=== PATIENT | female | born 1940 | race Caucasian/White ===

== ENCOUNTER 2017-08-19 19:20 | Emergency (ER) | payer BC, MEDICARE ==
[2017-08-19] MEDS ORDERED: Take Home: Sulfamethoxazole/Trimethoprim 800-160 MG Tab, 2 Tab Pack PO ONE (19:34)
--- NOTE | 2017-08-19 21:50 | EDM.PDOC ---
ED HPI GENERAL MEDICAL PROBLEM - General Chief Complaint: General Stated Complaint: redness, drainage, abdominal incision Time Seen by Provider: 08/19/17 19:24 Source of Information: Reports: Patient History Limitations: Reports: No Limitations - History of Present Illness INITIAL COMMENTS - FREE TEXT/NARRATIVE: PtTaty presents to ER with complaints of infected surgical incision. She states that she had a partial colon resection approx. 2 weeks ago, and the incision was closed with letty. She states that she developed redness and discharge from the incision. She denies any fever or chills. No weakness. She states that she has noticed some swelling to the area. Onset: Today Location: Reports: Abdomen - Related Data Allergies Allergy/AdvReac Type Severity Reaction Status Date / Time No Known Allergies Allergy Verified 08/19/17 19:25 Home Meds: Home Meds Metoprolol Tartrate 100 mg PO DAILY 08/19/17 [History] Simvastatin [Zocor] 40 mg PO DAILY 08/19/17 [History] metFORMIN HCl [Metformin HCl] 500 mg PO BID 08/19/17 [History] Past Medical History Cardiovascular History: Reports: High Cholesterol, Hypertension Endocrine/Metabolic History: Reports: Other (See Below) Other Endocrine/Metabolic History: boderline diabetic - Past Surgical History GI Surgical History: Reports: Colon ED ROS GENERAL - Review of Systems Review Of Systems: See Below Constitutional: Reports: No Symptoms HEENT: Reports: No Symptoms Respiratory: Reports: No Symptoms Cardiovascular: Reports: No Symptoms Endocrine: Reports: No Symptoms GI/Abdominal: Reports: Abdominal Pain, Other (swelling and erythema to surgical incision) : Reports: No Symptoms Musculoskeletal: Reports: No Symptoms Skin: Reports: Erythema Neurological: Reports: No Symptoms Psychiatric: Reports: No Symptoms Hematologic/Lymphatic: Reports: No Symptoms Immunologic: Reports: No Symptoms ED EXAM, GENERAL - Physical Exam Exam: See Below Exam Limited By: No Limitations General Appearance: Alert, WD/WN, No Apparent Distress Respiratory/Chest: No Respiratory Distress, Lungs Clear, Normal Breath Sounds, No Accessory Muscle Use, Chest Non-Tender Cardiovascular: Normal Peripheral Pulses, Regular Rate, Rhythm, No Edema, No Gallop, No JVD, No Murmur, No Rub Peripheral Pulses: 4+: Radial (L), Radial (R) GI/Abdominal: Normal Bowel Sounds, Soft, Tender, Other (erythema and discharge to the anterior stomach wall. Incision closed with skin letty.) Course - Vital Signs Last Recorded V/S: Last Vital Signs Temp 36.9 C 08/19/17 19:25 Pulse 74 08/19/17 19:25 Resp 16 08/19/17 19:25 BP 169/87 H 08/19/17 19:25 Pulse Ox 98 08/19/17 19:25 - Orders/Labs/Meds Orders: Active Orders 24 hr Category Date Time Status CULTURE WOUND + SMEAR [RM] Stat Lab 08/19/17 19:26 Ordered Meds: Medications Discontinued Medications Generic Name Dose Route Start Last Admin Trade Name Freq PRN Reason Stop Dose Admin Trimethoprim/Sulfamethoxazole 1 packet 08/19/17 19:34 08/19/17 19:51 Take Home: Sulfameth/Trimet 800-160mg, 2 Pack PO 08/19/17 19:35 1 packet ONETIME ONE Administration Departure - Departure Time of Disposition: 19:50 Disposition: Home, Self-Care 01 Clinical Impression: Surgical wound infection - Discharge Information Instructions: Surgical Site Infections FAQs - RODRIGUEZ, Sulfamethoxazole; Trimethoprim, SMX-TMP tablets Referrals: Yola Escalante MD [Primary Care Provider] - Forms: ED Department Discharge Additional Instructions: Follow-up in clinic on Saturday. Bactrim DS twice daily for 10 days. Do not wear the dressing if not actively draining. Return to ER if increased discomfort, swelling, fever, or chills. - My Orders Last 24 Hours: My Active Orders 08/19/17 19:26 CULTURE WOUND + SMEAR [RM] Stat - Assessment/Plan Last 24 Hours: My Active Orders 08/19/17 19:26 CULTURE WOUND + SMEAR [RM] Stat
== END 2017-08-19 19:56 | disposition home or self-care (01) ==
LOC: VM.ED 19:20
DX: T81.4XXA Infection following a procedure, initial encounter (principal); E78.00 Pure hypercholesterolemia, unspecified; I10 Essential (primary) hypertension; Z90.49 Acquired absence of other specified parts of digestive tract; Z79.899 Other long term (current) drug therapy; Z79.84 Long term (current) use of oral hypoglycemic drugs
CPT/HCPCS: 87070; 99283; A9270; 87077